=== PATIENT | male | born 1985 | race Caucasian/White ===

== ENCOUNTER 2024-09-24 22:34 | Emergency (ER) | payer SELFPAY ==
[~2024-09-24] VITALS: Ht 188 cm; Wt 95.0 kg
[2024-09-24 22:39] VITALS: O2SAT 98
[2024-09-24] MEDS ORDERED: ALBU18HF2 INH (23:09)
[2024-09-24] MEDS ORDERED: EPIN0.3P3 IM (23:09)
[2024-09-24] MEDS ORDERED: DIPHENHYDRAMINE 50MG/ML VIAL IV ONE (23:15)
[2024-09-24] MEDS ORDERED: METHYLPREDNISOLONE SOD SUCC 125MG/2ML (ACT-O-VIAL) IV ONE (23:15)
[2024-09-25] MEDS: DIPHENHYDRAMINE 50MG/ML VIAL IM ONE (01:10)
[2024-09-25] MEDS: DEXAMETHASONE 4MG TABLET PO ONE (01:10)
[2024-09-25 01:14] VITALS: BP 152/92; PULSE 93; RESP 18; TEMP 36.8; O2SAT 96
== END 2024-09-25 01:38 | disposition home or self-care (01) ==
LOC: ER 22:34
DX: T78.2XXA Anaphylactic shock, unspecified, initial encounter (principal); X58.XXXA Exposure to other specified factors, initial encounter; Y93.89 Activity, other specified; Y92.89 Other specified places as the place of occurrence of the external cause; Y99.8 Other external cause status
CPT/HCPCS: 99283; 96372; J8540; J1200